=== PATIENT | female | born 1945 | race Caucasian/White ===

== ENCOUNTER → 2017-03-05 | Outpatient (CLI) | payer MEDICARE, BC ==
[~2017-03-05] MED LIST: ASPI-515 PO; CEFD300C37 PO; DEXL60CA PO; FEXO1TAB29 PO; FLUT1DIS3 INH; GUAI-110 PO; HYDR12.53 PO; LACT1CAP24 PO; LEVA15HF2 INH; LEVO150T5 PO; LEVO25TA2 PO; MOME13HF INH; MULT-82 PO; PANT20TA2 PO; PANT40TA5 PO; PARO10TA24 PO; PARO20TA4 PO; SOLI5TAB PO; SPIR1TAB3 PO; [UNRECOGNIZED DRUG - OTHER]; [UNRECOGNIZED DRUG - OTHER] PO
== END | disposition home or self-care (01) ==
LOC: CFH 07:24
PROVIDERS: ATTEND Internal Medicine Gastroenterology
DX: K76.0 Fatty (change of) liver, not elsewhere classified (principal)
CPT/HCPCS: 76700

== ENCOUNTER → 2017-03-09 | Outpatient (CLI) | payer MEDICARE, BC ==
[~2017-03-09] MED LIST changes: +APIX5TAB PO; +GADOBUTROL 10 MMOL/10 ML VIAL ONE; +METO-93 PO; +MIRA50TA PO; +TRAM50TA2 PO; +fish oil PO
== END | disposition home or self-care (01) ==
LOC: CFH 08:13
PROVIDERS: ATTEND Internal Medicine Gastroenterology
DX: K74.60 Unspecified cirrhosis of liver (principal); R16.0 Hepatomegaly, not elsewhere classified; Z90.49 Acquired absence of other specified parts of digestive tract
CPT/HCPCS: 74183; A9585

== ENCOUNTER 2017-03-10 08:19 | Day surgery (SDC) | payer MEDICARE, BC ==
[~2017-03-10] VITALS: Ht 154.9 cm; Wt 91.9 kg
[~2017-03-10 08:19] MED LIST changes: -APIX5TAB PO; -GADOBUTROL 10 MMOL/10 ML VIAL ONE; -METO-93 PO; -MIRA50TA PO; -TRAM50TA2 PO; -fish oil PO
[2017-03-10 08:58] VITALS: BP 147/87
[2017-03-10] MEDS ORDERED: LIDOCAINE 1%, 2ML ONE (09:09)
[2017-03-10] MEDS ORDERED: TRAM50TA2 PO (09:16)
[2017-03-10] MEDS ORDERED: FLUT1DIS3 INH (09:16)
[2017-03-10] MEDS ORDERED: MIRA50TA PO (09:16)
[2017-03-10] MEDS ORDERED: METO-93 PO (09:16)
[2017-03-10] MEDS ORDERED: APIX5TAB PO (09:16)
[2017-03-10] MEDS ORDERED: fish oil PO (09:16)
[2017-03-10] MEDS ORDERED: LACTATED RINGERS 1,000 ML IV SCH (09:17)
[2017-03-10] MEDS ORDERED: LIDOCAINE 1%, 2ML SQ PRN (09:30)
[2017-03-10] MEDS ORDERED: LIDOCAINE 2% 100MG/5ML SYRINGE ONE (10:16)
[2017-03-10] MEDS ORDERED: PROPOFOL 10 MG/ML, 50ML ONE (10:16)
== END 2017-03-10 12:15 | disposition home or self-care (01) ==
LOC: OUT 08:19
PROVIDERS: ATTEND Internal Medicine Gastroenterology
PROC: 0D748ZZ Dilation of Esophagogastric Junction, Via Natural or Artificial Opening Endoscopic (ICD-10-PCS; principal; 2017-03-10 10:00)
DX: K29.50 Unspecified chronic gastritis without bleeding (principal); K63.5 Polyp of colon; K63.89 Other specified diseases of intestine; K22.2 Esophageal obstruction; K44.9 Diaphragmatic hernia without obstruction or gangrene; K21.9 Gastro-esophageal reflux disease without esophagitis; J45.909 Unspecified asthma, uncomplicated; J44.9 Chronic obstructive pulmonary disease, unspecified; I10 Essential (primary) hypertension; E03.9 Hypothyroidism, unspecified; Z90.710 Acquired absence of both cervix and uterus; Z90.49 Acquired absence of other specified parts of digestive tract; Z98.890 Other specified postprocedural states; Z98.49 Cataract extraction status, unspecified eye
CPT/HCPCS: 43239; 43248; 45380; 88305; 93005; J2704; J3490; J7120; 88342; G0461

== ENCOUNTER → 2017-09-16 | Outpatient (CLI) | payer MEDICARE, BC ==
[~2017-09-16] MED LIST changes: +APIX5TAB PO; -DEXL60CA PO; +DEXL60CA2 PO; -LEVA15HF2 INH; +LEVA15HF4 INH; +METO-93 PO; +MIRA50TA PO; +MULT-224 PO; -MULT-82 PO; -PARO10TA24 PO; +PARO10TA56 PO; -SOLI5TAB PO; +SOLI5TAB2 PO; +TRAM50TA2 PO; +fish oil PO
== END | disposition home or self-care (01) ==
LOC: CFH 07:55
PROVIDERS: ATTEND Internal Medicine Gastroenterology
DX: K74.60 Unspecified cirrhosis of liver (principal)
CPT/HCPCS: 76700

== ENCOUNTER → 2017-10-14 | Outpatient (CLI) | payer MEDICARE, BC ==
[~2017-10-14] MED LIST changes: +CALC-126 PO; +LEVO137T3 PO; +MOME17SP9 NS; +OMEG1600 PO
[2017-10-14 10:55] LABS: BASOPHILS # (AUTO) 0.03 x10^3/uL (0-0.1); BASOPHILS % (AUTO) 1 % (0-1); EOSINOPHILS # (AUTO) 0.17 x10^3/uL (0-0.4); EOSINOPHILS % (AUTO) 3 % (1-7); LYMPHOCYTES # (AUTO) 1.24 x10^3/uL (1-3.4); LYMPHOCYTES % (AUTO) 22 % (22-44); MD NO; MEAN CORPUSCULAR HEMOGLOBIN 31.7 pg (27.0-34.8); MEAN CORPUSCULAR HGB CONC 34.6 g/dL (32.4-35.8); MEAN CORPUSCULAR VOLUME 91.6 fL (80-100); MEAN PLATELET VOLUME 9.4 fL (7.4-10.4); MONOCYTES # (AUTO) 0.57 x10^3/uL (0.2-0.8); MONOCYTES % (AUTO) 10 % (2-9); NEUTROPHILS # (AUTO) 3.72 x10^3/uL (1.8-6.8); NEUTROPHILS % (AUTO) 65 % (42-75); PLATELET COUNT 246 x10^3/uL (130-400); RED BLOOD COUNT 4.65 x10^6/uL (3.82-5.3); RED CELL DISTRIBUTION WIDTH 13.7 % (9.6-15.2)
[2017-10-14 11:06] LABS: ALANINE AMINOTRANSFERASE 51 U/L (12-78); ALBUMIN 3.8 g/dL (3.4-5.0); ANION GAP 7 mmol/L (5-15); CHLORIDE 98 mmol/L (98-107); CREATININE 0.86 mg/dL (0.55-1.02)
[2017-10-14 11:08] LABS: ALKALINE PHOSPHATASE 76 U/L (45-117); BILIRUBIN,TOTAL 0.7 mg/dL (0.2-1.0); TOTAL PROTEIN 7.5 g/dL (6.4-8.2)
[2017-10-14 11:13] LABS: CULTURE INDICATED? YES; MICROSCOPIC INDICATED
== END | disposition home or self-care (01) ==
LOC: STAR 09:28
PROVIDERS: ATTEND Orthopaedic Surgery
DX: Z01.818 Encounter for other preprocedural examination (principal); R94.31 Abnormal electrocardiogram [ECG] [EKG]; M17.11 Unilateral primary osteoarthritis, right knee
CPT/HCPCS: 36415; 80053; 81001; 85025; 87077; 87081; 87086; 87186; 93005

== ENCOUNTER 2017-10-28 05:40 | Inpatient (IN) | payer MEDICARE, BC ==
[~2017-10-28] VITALS: Ht 154.9 cm; Wt 95.2 kg
[2017-10-28] MEDS ORDERED: KETOROLAC 60 MG/2 ML ONE (06:20)
[2017-10-28] MEDS ORDERED: ROPIvacaine/PF 0.2%, 20 ML ONE (06:20)
[2017-10-28] MEDS ORDERED: TRANEXAMIC ACID 100 MG/ML, 10ML ONE (06:20)
[2017-10-28] MEDS ORDERED: EPINEPHRINE 1 MG/ML, 1ML ONE (06:21)
[2017-10-28] MEDS ORDERED: VANCOMYCIN 1,000 MG ONE (06:21)
[2017-10-28] MEDS ORDERED: SODIUM CHLORIDE 0.9% 100 ML ONE (06:21)
[2017-10-28] MEDS ORDERED: LACTATED RINGERS 1,000 ML IV SCH (06:25)
[2017-10-28] MEDS ORDERED: FENTANYL PF 100 MCG/2ML ONE ×2 (06:28→09:07)
[2017-10-28] MEDS ORDERED: MIDAZOLAM 1 MG/ML, 2ML ONE (06:28)
[2017-10-28] MEDS ORDERED: PROPOFOL 10 MG/ML, 20ML ONE (06:30)
[2017-10-28] MEDS ORDERED: PROPOFOL 150 ML ONE (06:31)
[2017-10-28] MEDS ORDERED: morphine SULFATE 10 MG/ML, 1ML IV PRN (08:00)
[2017-10-28] MEDS ORDERED: HYDROcodone/APAP 7.5-325MG/15ML UDC PO PRN (08:00)
[2017-10-28] MEDS ORDERED: OXYcodone 5 MG/5 ML ORAL.SOL UDC PO PRN (08:00)
[2017-10-28] MEDS ORDERED: ONDANSETRON 2MG/ML, 2ML IVPush PRN (08:00)
[2017-10-28] MEDS ORDERED: PROMETHAZINE 25 MG/ML, 1ML IV PRN (08:00)
[2017-10-28] MEDS ORDERED: ACETAMINOPHEN 325 MG TABLET PO PRN (08:00)
[2017-10-28] MEDS ORDERED: DIPHENHYDRAMINE 25 MG CAPSULE PO PRN (09:00)
[2017-10-28] MEDS ORDERED: LORazepam 1MG TABLET PO PRN (09:00)
[2017-10-28] MEDS ORDERED: ACETAMINOPHEN 650 MG/20.3 ML UDC PO PRN (09:00)
[2017-10-28] MEDS ORDERED: MAGNESIUM HYDROXIDE 8%, 30ML UDC PO PRN (09:00)
[2017-10-28] MEDS ORDERED: ONDANSETRON 4 MG TABLET PO PRN (09:00)
[2017-10-28] MEDS ORDERED: ZOLPIDEM 5MG TABLET PO PRN (09:00)
[2017-10-28] MEDS ORDERED: HYDROcodone/APAP 5/325 TABLET PO PRN (09:00)
[2017-10-28] MEDS ORDERED: PROMETHAZINE 25 MG/ML, 1ML IM PRN (09:00)
[2017-10-28] MEDS ORDERED: SENNA/DOCUSATE TABLET PO PRN (09:00)
[2017-10-28] MEDS ORDERED: PROMETHAZINE 12.5 MG SUPP PR PRN (09:00)
[2017-10-28] MEDS ORDERED: ONDANSETRON 2MG/ML, 2ML IV PRN (09:00)
[2017-10-28] MEDS ORDERED: ALUMINUM/MAG/SIMETHICONE 30 ML UDC PO PRN (09:00)
[2017-10-28] MEDS ORDERED: HYDROmorphone 1 MG/ML, 1ML IV PRN (09:00)
[2017-10-28] MEDS ORDERED: BISACODYL 10 MG SUPP PR PRN (09:00)
[2017-10-28] MEDS ORDERED: ACETAMINOPHEN 650 MG/20.3 ML UDC ONE (09:06)
[2017-10-28] MEDS ORDERED: OXYcodone 5 MG/5 ML ORAL.SOL UDC ONE (09:07)
[2017-10-28] MEDS: FENTANYL PF 100 MCG/2ML IV PRN ×2 (09:15→09:22)
[2017-10-28] MEDS ORDERED: TRANEXAMIC ACID 1,000 MG in SODIUM CHLORIDE 0.9% 100 ML IVPB ONE (10:00)
[2017-10-28] MEDS ORDERED: CEFAZOLIN 2,000 MG in DEXTROSE 5% 50 ML IV SCH ×2 (10:30→12:00)
[2017-10-28] MEDS ORDERED: XOPENEX HFA INHALER INH PRN (11:00)
[2017-10-28] MEDS: MORPHINE SULFATE 4 MG/ML, 1ML IVPush PRN ×5 (11:09→20:01)
[2017-10-28 11:15] VITALS: BP 131/73
[2017-10-28] MEDS: OXYcodone IR 5MG TABLET PO PRN ×3 (13:11→21:34)
[2017-10-28 14:22] VITALS: BP 125/75
[2017-10-28] MEDS: DIAZEPAM 5 MG TABLET PO PRN ×2 (14:32→20:02)
[2017-10-28] MEDS ORDERED: PROPOFOL 10 MG/ML, 50ML ONE (15:21)
[2017-10-28] MEDS ORDERED: ONDANSETRON 2MG/ML, 2ML ONE (15:21)
[2017-10-28] MEDS ORDERED: DEXAMETHASONE 4 MG/ML, 1ML ONE (15:21)
[2017-10-28] MEDS ORDERED: CEFAZOLIN 1,000 MG ONE (15:21)
[2017-10-28] MEDS: CEFAZOLIN 2,000 MG in DEXTROSE 5% 50 ML IV SCH ×2 (15:28→23:57)
[2017-10-28] MEDS: DOCUSATE 100 MG CAPSULE PO SCH ×2 (15:29→21:35)
[2017-10-28] MEDS: TAMSULOSIN 0.4 MG CAP.ER.24H PO SCH (15:29)
[2017-10-28] MEDS: D5%-0.45% NACL 1,000 ML IV SCH ×2 (17:24→18:02)
[2017-10-28 19:54] VITALS: BP 114/55
[2017-10-28] MEDS: ADVAIR 250-50 DISKUS INH SCH (21:00)
[2017-10-29 00:18] VITALS: BP 125/57
[2017-10-29 00:31] VITALS: BP 106/61
[2017-10-29] MEDS: DIAZEPAM 5 MG TABLET PO PRN ×2 (00:52→13:05)
[2017-10-29] MEDS: OXYcodone IR 5MG TABLET PO PRN ×4 (01:35→16:10)
[2017-10-29] MEDS: D5%-0.45% NACL 1,000 ML IV SCH ×2 (03:11→12:14)
[2017-10-29 04:19] VITALS: BP 118/61
[2017-10-29] MEDS ORDERED: DEXAMETHASONE 4 MG/ML, 1ML IVPush SCH (06:00)
[2017-10-29] MEDS ORDERED: LEVOTHYROXINE 137 MCG TABLET PO SCH (06:00)
[2017-10-29] MEDS ORDERED: METOPROLOL SUCCINATE 50 MG TAB.ER.24H PO SCH (06:00)
[2017-10-29] MEDS ORDERED: APIXABAN 5 MG TABLET PO SCH (06:00)
[2017-10-29] MEDS ORDERED: METOPROLOL SUCCINATE 25 MG TAB.ER.24H ONE (06:09)
[2017-10-29 07:49] VITALS: BP 142/42
[2017-10-29] MEDS: CEFAZOLIN 2,000 MG in DEXTROSE 5% 50 ML IV SCH ×2 (08:37→15:30)
[2017-10-29] MEDS ORDERED: OMEGA-3/FISH OIL CAPSULE PO SCH (09:00)
[2017-10-29] MEDS ORDERED: MULTIVITAMINS/MINERALS TABLET PO SCH (09:00)
[2017-10-29] MEDS ORDERED: PAROXETINE 20 MG TABLET PO SCH (09:00)
[2017-10-29] MEDS ORDERED: KETOROLAC 30 MG/1 ML IV SCH (09:00)
[2017-10-29] MEDS ORDERED: SPIRONOLACT/HCTZ 25/25MG TABLET PO SCH (09:00)
[2017-10-29] MEDS: ADVAIR 250-50 DISKUS INH SCH (09:00)
[2017-10-29] MEDS ORDERED: DEXILANT 60MG HOMEMEDPO SCH (09:00)
[2017-10-29] MEDS ORDERED: MYRBETRIQ 50 MG HOMEMEDPO SCH (09:00)
[2017-10-29] MEDS ORDERED: MOMETASONE FUROATE HOMEINH SCH (09:00)
[2017-10-29] MEDS ORDERED: ALLEGRA D HOMEMEDPO SCH (09:00)
[2017-10-29] MEDS: TAMSULOSIN 0.4 MG CAP.ER.24H PO SCH (09:07)
[2017-10-29] MEDS: DOCUSATE 100 MG CAPSULE PO SCH (09:09)
[2017-10-29 12:34] VITALS: BP 108/73
[2017-10-29] MEDS ORDERED: DIAZ5TAB PO (16:43)
[2017-10-29] MEDS ORDERED: OXYC5CAP2 PO (16:43)
== END 2017-10-29 17:00 | disposition home or self-care (01) | DRG 469 ==
LOC: ORIP 05:40 → 4NOR 10:04 → DCLOUNGE 10-29 16:41
PROVIDERS: ADMIT Orthopaedic Surgery; ATTEND Orthopaedic Surgery
PROC: 0SRC0J9 Replacement of Right Knee Joint with Synthetic Substitute, Cemented, Open Approach (ICD-10-PCS; principal; 2017-10-28 07:30)
PROC: 5A09357 Assistance with Respiratory Ventilation, Less than 24 Consecutive Hours, Continuous Positive Airway Pressure (ICD-10-PCS; 2017-10-29)
DX: M17.11 Unilateral primary osteoarthritis, right knee (principal); J96.21 Acute and chronic respiratory failure with hypoxia; I48.91 Unspecified atrial fibrillation; G47.33 Obstructive sleep apnea (adult) (pediatric); I10 Essential (primary) hypertension; E03.9 Hypothyroidism, unspecified; K21.9 Gastro-esophageal reflux disease without esophagitis; J45.909 Unspecified asthma, uncomplicated
CPT/HCPCS: 36415; 85018; C1713; J0171; J0690; J1100; J1885; J2250; J2405; J2704; J2795; J3010; J3370; C1776; J7120

== ENCOUNTER 2017-11-02 00:15 | Inpatient (IN) | payer MEDICARE, BC ==
[~2017-11-02] VITALS: Ht 154.9 cm; Wt 96.2 kg
[~2017-11-02 00:15] MED LIST changes: +DIAZ5TAB PO; +OXYC5CAP2 PO
[2017-11-02] MEDS ORDERED: SODIUM CHLORIDE FLUSH 10ML SYR IVF ONE (01:00)
[2017-11-02] MEDS ORDERED: SODIUM CHLORIDE 0.9% 1,000ML IVBOLUS ONE (01:00)
[2017-11-02 01:18] LABS: BASOPHILS # (AUTO) 0.03 x10^3/uL (0-0.1); BASOPHILS % (AUTO) 0 % (0-1); EOSINOPHILS # (AUTO) 0.26 x10^3/uL (0-0.4); EOSINOPHILS % (AUTO) 3 % (1-7); LYMPHOCYTES # (AUTO) 1.07 x10^3/uL (1-3.4); LYMPHOCYTES % (AUTO) 14 % (22-44); MD NO; MEAN CORPUSCULAR HEMOGLOBIN 30.9 pg (27.0-34.8); MEAN CORPUSCULAR HGB CONC 34.1 g/dL (32.4-35.8); MEAN CORPUSCULAR VOLUME 90.6 fL (80-100); MONOCYTES # (AUTO) 0.77 x10^3/uL (0.2-0.8); MONOCYTES % (AUTO) 10 % (2-9); NEUTROPHILS # (AUTO) 5.62 x10^3/uL (1.8-6.8); NEUTROPHILS % (AUTO) 73 % (42-75); PLATELET COUNT 222 x10^3/uL (130-400); RED BLOOD COUNT 3.44 x10^6/uL (3.82-5.3); RED CELL DISTRIBUTION WIDTH 13.2 % (9.6-15.2)
[2017-11-02 01:31] LABS: ALANINE AMINOTRANSFERASE 31 U/L (12-78); ALBUMIN 2.5 g/dL (3.4-5.0); ANION GAP 8 mmol/L (5-15); CALCIUM 7.9 mg/dL (8.5-10.1); CHLORIDE 95 mmol/L (98-107); CREATININE 0.72 mg/dL (0.55-1.02)
[2017-11-02 01:35] LABS: ALKALINE PHOSPHATASE 69 U/L (45-117); BILIRUBIN,TOTAL 1.2 mg/dL (0.2-1.0); TROPONIN I 0.021 ng/mL (0.000-0.045)
[2017-11-02] MEDS ORDERED: POTASSIUM CHLORIDE 20 MEQ TAB.ER.PRT PO ONE ×2 (02:00→12:00)
[2017-11-02] MEDS ORDERED: MORPHINE SULFATE 4 MG/ML, 1ML ONE (02:18)
[2017-11-02] MEDS ORDERED: MORPHINE SULFATE 4 MG/ML, 1ML IVPush PRN (02:30)
[2017-11-02] MEDS ORDERED: POTASSIUM CHLORIDE 20 MEQ TAB.ER.PRT ONE (02:38)
[2017-11-02] MEDS ORDERED: OMNIPAQUE 350 MG/ML, 100ML BOTTLE ONE (02:48)
[2017-11-02] MEDS ORDERED: POTASSIUM CHLORIDE 20 MEQ in SODIUM CHLORIDE 0.9% 1,000 ML IV ONE (03:26)
[2017-11-02] MEDS ORDERED: VANCOMYCIN PER PHARMACY IV ONE (03:30)
[2017-11-02] MEDS ORDERED: VANCOMYCIN 1,800 MG in SODIUM CHLORIDE 0.9% 250 ML IV ONE (03:30)
[2017-11-02 04:15] VITALS: BP 132/71
[2017-11-02] MEDS ORDERED: ONDANSETRON 2MG/ML, 2ML IVPush PRN (04:30)
[2017-11-02] MEDS ORDERED: FUROSEMIDE 40 MG/4 ML IV ONE (04:30)
[2017-11-02] MEDS ORDERED: LEVALBUTEROL TARTRATE INH PRN (04:30)
[2017-11-02] MEDS: OXYcodone IR 5MG TABLET PO PRN ×5 (04:52→19:41)
[2017-11-02 05:52] LABS: TROPONIN I < 0.015 ng/mL (0.000-0.045)
[2017-11-02] MEDS: SODIUM CHLORIDE 0.9% 1,000 ML IV SCH ×2 (06:14→23:26)
[2017-11-02 06:20] LABS: MICROSCOPIC NOT IND
[2017-11-02 06:23] LABS: CULTURE INDICATED? NO
[2017-11-02 07:06] VITALS: BP 120/72
[2017-11-02] MEDS: CALCIUM/VITAMIN D3 250-125 TABLET PO SCH (08:15)
[2017-11-02] MEDS: SPIRONOLACT/HCTZ 25/25MG TABLET PO SCH (08:15)
[2017-11-02] MEDS: PANTOPROZOLE 40MG TABLET PO SCH (08:15)
[2017-11-02] MEDS: LEVOTHYROXINE 137 MCG TABLET PO SCH (08:15)
[2017-11-02] MEDS: PAROXETINE 20 MG TABLET PO SCH (08:15)
[2017-11-02] MEDS: METOPROLOL SUCCINATE 50 MG TAB.ER.24H PO SCH (08:16)
[2017-11-02] MEDS: OMEGA-3/FISH OIL CAPSULE PO SCH (08:16)
[2017-11-02] MEDS: APIXABAN 5 MG TABLET PO SCH ×2 (08:16→20:00)
[2017-11-02] MEDS: MULTIVITAMIN 1 TABLET PO SCH (08:16)
[2017-11-02] MEDS: POLYETHYLENE GLYCOL 17 GM PACKET PO SCH (08:17)
[2017-11-02] MEDS: TEMPLATE NON-FORMULARY MED. (Mirabegron** (Myrbetriq**) 50 MG) HOMEMEDPO SCH (08:23)
[2017-11-02] MEDS: FLUTICASONE NASAL SPRAY 16GM NAS SCH (09:00)
[2017-11-02] MEDS: FLUTICASONE/VILANTEROL 100-25MCG/INH INH SCH (09:14)
[2017-11-02 10:27] LABS: TROPONIN I < 0.015 ng/mL (0.000-0.045)
[2017-11-02 11:07] LABS: ANION GAP 9 mmol/L (5-15); CALCIUM 7.7 mg/dL (8.5-10.1); CHLORIDE 96 mmol/L (98-107); CREATININE 0.71 mg/dL (0.55-1.02)
[2017-11-02 14:45] VITALS: BP 131/83
[2017-11-02 20:07] VITALS: BP 125/79
[2017-11-03 02:53] VITALS: BP 113/70
[2017-11-03 05:24] LABS: BASOPHILS % (AUTO) 0 % (0-1); EOSINOPHILS # (AUTO) 0.31 x10^3/uL (0-0.4); EOSINOPHILS % (AUTO) 4 % (1-7); LYMPHOCYTES # (AUTO) 1.01 x10^3/uL (1-3.4); LYMPHOCYTES % (AUTO) 14 % (22-44); MD NO; MEAN CORPUSCULAR HEMOGLOBIN 32.1 pg (27.0-34.8); MEAN CORPUSCULAR HGB CONC 34.7 g/dL (32.4-35.8); MEAN CORPUSCULAR VOLUME 92.5 fL (80-100); MEAN PLATELET VOLUME 8.8 fL (7.4-10.4); MONOCYTES # (AUTO) 0.77 x10^3/uL (0.2-0.8); MONOCYTES % (AUTO) 10 % (2-9); NEUTROPHILS # (AUTO) 5.29 x10^3/uL (1.8-6.8); NEUTROPHILS % (AUTO) 72 % (42-75); PLATELET COUNT 224 x10^3/uL (130-400); RED BLOOD COUNT 3.34 x10^6/uL (3.82-5.3)
[2017-11-03 05:31] LABS: CHLORIDE 100 mmol/L (98-107)
[2017-11-03 05:40] LABS: ALANINE AMINOTRANSFERASE 30 U/L (12-78); ALBUMIN 2.5 g/dL (3.4-5.0); ALKALINE PHOSPHATASE 66 U/L (45-117); ANION GAP 6 mmol/L (5-15); BILIRUBIN,TOTAL 1.3 mg/dL (0.2-1.0); CALCIUM 8.1 mg/dL (8.5-10.1); CREATININE 0.63 mg/dL (0.55-1.02)
[2017-11-03 07:27] VITALS: BP 137/80
[2017-11-03] MEDS: OXYcodone IR 5MG TABLET PO PRN ×4 (08:06→21:21)
[2017-11-03] MEDS: CALCIUM/VITAMIN D3 250-125 TABLET PO SCH (08:07)
[2017-11-03] MEDS: MULTIVITAMIN 1 TABLET PO SCH (08:08)
[2017-11-03] MEDS: OMEGA-3/FISH OIL CAPSULE PO SCH (08:08)
[2017-11-03] MEDS: METOPROLOL SUCCINATE 50 MG TAB.ER.24H PO SCH (08:08)
[2017-11-03] MEDS: APIXABAN 5 MG TABLET PO SCH ×2 (08:08→20:11)
[2017-11-03] MEDS: LEVOTHYROXINE 137 MCG TABLET PO SCH (08:08)
[2017-11-03] MEDS: PANTOPROZOLE 40MG TABLET PO SCH (08:08)
[2017-11-03] MEDS: PAROXETINE 20 MG TABLET PO SCH (08:08)
[2017-11-03] MEDS: POLYETHYLENE GLYCOL 17 GM PACKET PO SCH (08:09)
[2017-11-03] MEDS: TEMPLATE NON-FORMULARY MED. (Mirabegron** (Myrbetriq**) 50 MG) HOMEMEDPO SCH (08:09)
[2017-11-03] MEDS: FLUTICASONE/VILANTEROL 100-25MCG/INH INH SCH (10:11)
[2017-11-03] MEDS: SPIRONOLACT/HCTZ 25/25MG TABLET PO SCH (10:11)
[2017-11-03] MEDS: FLUTICASONE NASAL SPRAY 16GM NAS SCH (10:11)
[2017-11-03] MEDS ORDERED: POTASSIUM CHLORIDE 20 MEQ TAB.ER.PRT PO ONE (12:00)
[2017-11-03 13:02] VITALS: BP 158/76
[2017-11-03 19:20] VITALS: BP 156/80
[2017-11-04] MEDS: ACETAMINOPHEN 325 MG TABLET PO PRN ×3 (00:25→20:28)
[2017-11-04 02:43] VITALS: BP 134/65
[2017-11-04] MEDS: OXYcodone IR 5MG TABLET PO PRN ×2 (04:15→08:42)
[2017-11-04 05:22] LABS: BASOPHILS # (AUTO) 0.04 x10^3/uL (0-0.1); BASOPHILS % (AUTO) 1 % (0-1); EOSINOPHILS % (AUTO) 5 % (1-7); LYMPHOCYTES # (AUTO) 1.43 x10^3/uL (1-3.4); LYMPHOCYTES % (AUTO) 18 % (22-44); MD NO; MEAN CORPUSCULAR HGB CONC 33.4 g/dL (32.4-35.8); MEAN CORPUSCULAR VOLUME 92.7 fL (80-100); MEAN PLATELET VOLUME 8.6 fL (7.4-10.4); MONOCYTES # (AUTO) 0.85 x10^3/uL (0.2-0.8); MONOCYTES % (AUTO) 10 % (2-9); NEUTROPHILS # (AUTO) 5.47 x10^3/uL (1.8-6.8); NEUTROPHILS % (AUTO) 67 % (42-75); PLATELET COUNT 269 x10^3/uL (130-400); RED BLOOD COUNT 3.58 x10^6/uL (3.82-5.3); RED CELL DISTRIBUTION WIDTH 13.6 % (9.6-15.2)
[2017-11-04 05:29] LABS: ANION GAP 9 mmol/L (5-15); CALCIUM 8.4 mg/dL (8.5-10.1); CHLORIDE 100 mmol/L (98-107)
[2017-11-04 05:30] LABS: CREATININE 0.66 mg/dL (0.55-1.02)
[2017-11-04 07:30] VITALS: BP 134/79
[2017-11-04] MEDS: MULTIVITAMIN 1 TABLET PO SCH (08:32)
[2017-11-04] MEDS: CALCIUM/VITAMIN D3 250-125 TABLET PO SCH (08:32)
[2017-11-04] MEDS: SPIRONOLACT/HCTZ 25/25MG TABLET PO SCH (08:33)
[2017-11-04] MEDS: OMEGA-3/FISH OIL CAPSULE PO SCH (08:33)
[2017-11-04] MEDS: PAROXETINE 20 MG TABLET PO SCH (08:33)
[2017-11-04] MEDS: APIXABAN 5 MG TABLET PO SCH ×2 (08:33→20:28)
[2017-11-04] MEDS: PANTOPROZOLE 40MG TABLET PO SCH (08:33)
[2017-11-04] MEDS: METOPROLOL SUCCINATE 50 MG TAB.ER.24H PO SCH (08:34)
[2017-11-04] MEDS: LEVOTHYROXINE 137 MCG TABLET PO SCH (08:34)
[2017-11-04] MEDS: POLYETHYLENE GLYCOL 17 GM PACKET PO SCH (08:35)
[2017-11-04] MEDS: FLUTICASONE/VILANTEROL 100-25MCG/INH INH SCH (08:42)
[2017-11-04] MEDS: FLUTICASONE NASAL SPRAY 16GM NAS SCH (08:42)
[2017-11-04] MEDS: TEMPLATE NON-FORMULARY MED. (Mirabegron** (Myrbetriq**) 50 MG) HOMEMEDPO SCH (09:00)
[2017-11-04] MEDS: GABAPENTIN 100 MG CAPSULE PO SCH ×3 (11:28→20:28)
[2017-11-04 13:52] VITALS: BP 139/84
[2017-11-04 19:39] VITALS: BP 122/80
[2017-11-05 01:52] VITALS: BP 151/75
[2017-11-05] MEDS: ACETAMINOPHEN 325 MG TABLET PO PRN ×2 (02:43→11:11)
[2017-11-05] MEDS: GABAPENTIN 100 MG CAPSULE PO SCH ×2 (05:29→11:10)
[2017-11-05 05:51] LABS: BASOPHILS # (AUTO) 0.04 x10^3/uL (0-0.1); BASOPHILS % (AUTO) 0 % (0-1); EOSINOPHILS # (AUTO) 0.39 x10^3/uL (0-0.4); EOSINOPHILS % (AUTO) 4 % (1-7); LYMPHOCYTES # (AUTO) 1.33 x10^3/uL (1-3.4); LYMPHOCYTES % (AUTO) 15 % (22-44); MD NO; MEAN CORPUSCULAR HEMOGLOBIN 30.8 pg (27.0-34.8); MEAN CORPUSCULAR HGB CONC 33.4 g/dL (32.4-35.8); MEAN CORPUSCULAR VOLUME 92.2 fL (80-100); MEAN PLATELET VOLUME 8.5 fL (7.4-10.4); MONOCYTES # (AUTO) 0.92 x10^3/uL (0.2-0.8); MONOCYTES % (AUTO) 10 % (2-9); NEUTROPHILS # (AUTO) 6.39 x10^3/uL (1.8-6.8); NEUTROPHILS % (AUTO) 71 % (42-75); PLATELET COUNT 301 x10^3/uL (130-400); RED BLOOD COUNT 3.71 x10^6/uL (3.82-5.3); RED CELL DISTRIBUTION WIDTH 13.8 % (9.6-15.2)
[2017-11-05 05:57] LABS: CHLORIDE 101 mmol/L (98-107)
[2017-11-05 06:37] LABS: % IRON SATURATION 15 % (20-55); ANION GAP 9 mmol/L (5-15); CALCIUM 8.6 mg/dL (8.5-10.1); CREATININE 0.83 mg/dL (0.55-1.02); FOLATE LEVEL 14.7 ng/mL (3.1-17.5); IRON LEVEL 42 mcg/dL (50-170); TOTAL IRON BINDING CAPACITY 285 mcg/dL (250-450)
[2017-11-05 07:48] VITALS: BP 130/84
[2017-11-05] MEDS ORDERED: FERROUS SULFATE 325 MG TABLET PO SCH (08:00)
[2017-11-05] MEDS: PANTOPROZOLE 40MG TABLET PO SCH (08:44)
[2017-11-05] MEDS: SPIRONOLACT/HCTZ 25/25MG TABLET PO SCH (08:44)
[2017-11-05] MEDS: APIXABAN 5 MG TABLET PO SCH (08:44)
[2017-11-05] MEDS: LEVOTHYROXINE 137 MCG TABLET PO SCH (08:44)
[2017-11-05] MEDS: OMEGA-3/FISH OIL CAPSULE PO SCH (08:44)
[2017-11-05] MEDS: CALCIUM/VITAMIN D3 250-125 TABLET PO SCH (08:44)
[2017-11-05] MEDS: MULTIVITAMIN 1 TABLET PO SCH (08:44)
[2017-11-05] MEDS: PAROXETINE 20 MG TABLET PO SCH (08:44)
[2017-11-05] MEDS: FLUTICASONE/VILANTEROL 100-25MCG/INH INH SCH (08:45)
[2017-11-05] MEDS: FLUTICASONE NASAL SPRAY 16GM NAS SCH (08:45)
[2017-11-05] MEDS: METOPROLOL SUCCINATE 50 MG TAB.ER.24H PO SCH (08:45)
[2017-11-05] MEDS: TEMPLATE NON-FORMULARY MED. (Mirabegron** (Myrbetriq**) 50 MG) HOMEMEDPO SCH (08:46)
[2017-11-05] MEDS: POLYETHYLENE GLYCOL 17 GM PACKET PO SCH (08:46)
[2017-11-05] MEDS ORDERED: GABA-826 PO (11:20)
[2017-11-05] MEDS ORDERED: TRAM50TA2 PO (11:20)
[2017-11-05 12:40] VITALS: BP 122/70
== END 2017-11-05 16:54 | DRG 917 ==
LOC: ED 00:49 → EDIP 03:26 → 4NOR 04:29 → 4EST 05:29
PROVIDERS: ADMIT Hospitalist; ATTEND Hospitalist
DX: T42.4X1A Poisoning by benzodiazepines, accidental (unintentional), initial encounter (principal); J96.01 Acute respiratory failure with hypoxia; E43 Unspecified severe protein-calorie malnutrition; I50.31 Acute diastolic (congestive) heart failure; I48.91 Unspecified atrial fibrillation; L03.115 Cellulitis of right lower limb; D64.9 Anemia, unspecified; J44.9 Chronic obstructive pulmonary disease, unspecified; E87.1 Hypo-osmolality and hyponatremia; Z68.41 Body mass index [BMI] 40.0-44.9, adult; K74.60 Unspecified cirrhosis of liver; T40.601A Poisoning by unspecified narcotics, accidental (unintentional), initial encounter; I11.0 Hypertensive heart disease with heart failure; E03.9 Hypothyroidism, unspecified; E87.6 Hypokalemia; G47.33 Obstructive sleep apnea (adult) (pediatric); K21.9 Gastro-esophageal reflux disease without esophagitis; M17.11 Unilateral primary osteoarthritis, right knee; Z90.710 Acquired absence of both cervix and uterus; Z96.651 Presence of right artificial knee joint; Z88.6 Allergy status to analgesic agent; Z91.040 Latex allergy status; Y92.89 Other specified places as the place of occurrence of the external cause
CPT/HCPCS: 36415; 71045; 71275; 80048; 80053; 81003; 82607; 82728; 82746; 83540; 83550; 83605; 83735; 83880; 84100; 84145; 84484; 85025; 87040; 93005; 93306; 96365; 96375; J1940; J3370; Q9967; J7030; J7050

== ENCOUNTER → 2018-02-02 | Outpatient (CLI) | payer MEDICARE, BC ==
[~2018-02-02] MED LIST changes: +GABA-826 PO
== END | disposition home or self-care (01) ==
LOC: CFH 13:55
PROVIDERS: ATTEND Registered Nurse General Practice
DX: Z12.31 Encounter for screening mammogram for malignant neoplasm of breast (principal); Z13.820 Encounter for screening for osteoporosis; Z12.2 Encounter for screening for malignant neoplasm of respiratory organs; I25.10 Atherosclerotic heart disease of native coronary artery without angina pectoris; M85.88 Other specified disorders of bone density and structure, other site; R92.1 Mammographic calcification found on diagnostic imaging of breast; N95.9 Unspecified menopausal and perimenopausal disorder; Z87.891 Personal history of nicotine dependence
CPT/HCPCS: 77067; 77080; G0297

== ENCOUNTER → 2018-10-28 | Outpatient (CLI) | payer MEDICARE, BC ==
[~2018-10-28] MED LIST changes: +HYDR12.517 PO; -HYDR12.53 PO; -MULT-224 PO; +MULT-642 PO; +REGADENOSON 0.4 MG/5 ML SYRINGE ONE
== END | disposition home or self-care (01) ==
LOC: CVU 09:26
PROVIDERS: ATTEND Internal Medicine Cardiovascular Disease
DX: I65.23 Occlusion and stenosis of bilateral carotid arteries (principal); I48.0 Paroxysmal atrial fibrillation; E11.9 Type 2 diabetes mellitus without complications; I10 Essential (primary) hypertension; J44.9 Chronic obstructive pulmonary disease, unspecified; Z87.891 Personal history of nicotine dependence; Z72.89 Other problems related to lifestyle; Z88.5 Allergy status to narcotic agent; Z91.040 Latex allergy status
CPT/HCPCS: 93306; 93880; J2785

== ENCOUNTER → 2018-11-04 | Outpatient (CLI) | payer MEDICARE, BC ==
[~2018-11-04] MED LIST changes: -REGADENOSON 0.4 MG/5 ML SYRINGE ONE
== END | disposition home or self-care (01) ==
LOC: CFH 07:09
PROVIDERS: ATTEND Internal Medicine Gastroenterology
DX: K74.60 Unspecified cirrhosis of liver (principal); K20.0 Eosinophilic esophagitis; K21.9 Gastro-esophageal reflux disease without esophagitis; K75.81 Nonalcoholic steatohepatitis (NASH); K90.89 Other intestinal malabsorption; B96.81 Helicobacter pylori [H. pylori] as the cause of diseases classified elsewhere; I48.0 Paroxysmal atrial fibrillation; E89.41 Symptomatic postprocedural ovarian failure; G47.30 Sleep apnea, unspecified; E11.9 Type 2 diabetes mellitus without complications; E03.9 Hypothyroidism, unspecified; I10 Essential (primary) hypertension; Z86.010 Personal history of colon polyps; Z68.38 Body mass index [BMI] 38.0-38.9, adult; Z79.01 Long term (current) use of anticoagulants; Z87.11 Personal history of peptic ulcer disease; Z90.49 Acquired absence of other specified parts of digestive tract; Z87.891 Personal history of nicotine dependence; Z88.6 Allergy status to analgesic agent; Z88.8 Allergy status to other drugs, medicaments and biological substances
CPT/HCPCS: 76705

== ENCOUNTER 2018-11-25 11:44 | Day surgery (SDC) | payer MEDICARE, BC ==
[2018-11-24 11:36] VITALS: BP 142/86
[2018-11-24 12:07] LABS: BASOPHILS # (AUTO) 0.04 x10^3/uL (0-0.1); BASOPHILS % (AUTO) 1 % (0-1); EOSINOPHILS # (AUTO) 0.23 x10^3/uL (0-0.4); EOSINOPHILS % (AUTO) 5 % (1-7); LYMPHOCYTES # (AUTO) 1.09 x10^3/uL (1-3.4); LYMPHOCYTES % (AUTO) 22 % (22-44); MD NO; MEAN CORPUSCULAR HEMOGLOBIN 27.2 pg (27.0-34.8); MEAN CORPUSCULAR HGB CONC 32.8 g/dL (32.4-35.8); MEAN PLATELET VOLUME 10.4 fL (7.4-10.4); MONOCYTES # (AUTO) 0.43 x10^3/uL (0.2-0.8); MONOCYTES % (AUTO) 9 % (2-9); NEUTROPHILS # (AUTO) 3.24 x10^3/uL (1.8-6.8); NEUTROPHILS % (AUTO) 65 % (42-75); PLATELET COUNT 222 x10^3/uL (130-400); RED BLOOD COUNT 4.89 x10^6/uL (3.82-5.3); RED CELL DISTRIBUTION WIDTH 15.9 % (9.6-15.2)
[2018-11-24 12:09] LABS: ANION GAP 5 mmol/L (5-15); CALCIUM 9.5 mg/dL (8.5-10.1); CHLORIDE 105 mmol/L (98-107)
[2018-11-24 12:10] LABS: CREATININE 0.77 mg/dL (0.55-1.02)
[~2018-11-25] VITALS: Ht 154.9 cm; Wt 87.3 kg
[~2018-11-25 11:44] MED LIST changes: +FEXO180T72 PO; +GUAI600T31 PO; +MEGA RED JOINT CARE PO; +METH500T5 PO; +MOME13HF2 INH; +[UNRECOGNIZED DRUG - CODE] PO; +[UNRECOGNIZED DRUG - OTHER] PO; +[UNRECOGNIZED DRUG - OTHER] PO; +[UNRECOGNIZED DRUG - OTHER] PO
[2018-11-25] MEDS ORDERED: SODIUM CHLORIDE 0.9% 1,000 ML IV SCH ×2 (13:13→14:36)
[2018-11-25] MEDS ORDERED: DIPHENHYDRAMINE 50 MG/ML, 1ML ONE (13:26)
[2018-11-25] MEDS ORDERED: DIPHENHYDRAMINE 50 MG/ML, 1ML IVPush ONE (13:30)
[2018-11-25] MEDS ORDERED: MIDAZOLAM 1 MG/ML, 5ML ONE (13:37)
[2018-11-25] MEDS ORDERED: FENTANYL PF 100 MCG/2ML ONE (13:37)
[2018-11-25] MEDS ORDERED: LIDOCAINE 1%, 20ML ONE (13:38)
[2018-11-25 16:39] VITALS: BP 135/67
== END 2018-11-25 18:45 | disposition home or self-care (01) ==
LOC: CACL 11:44 → 5SO 14:52 → CACL 18:45
PROVIDERS: ATTEND Internal Medicine Cardiovascular Disease
DX: I77.1 Stricture of artery (principal); I10 Essential (primary) hypertension; E11.9 Type 2 diabetes mellitus without complications; E78.2 Mixed hyperlipidemia; I48.0 Paroxysmal atrial fibrillation; J44.9 Chronic obstructive pulmonary disease, unspecified; G47.30 Sleep apnea, unspecified; Z79.01 Long term (current) use of anticoagulants; Z87.891 Personal history of nicotine dependence; Z88.5 Allergy status to narcotic agent; Z88.8 Allergy status to other drugs, medicaments and biological substances; Z91.040 Latex allergy status; Z79.84 Long term (current) use of oral hypoglycemic drugs
CPT/HCPCS: 36415; 80048; 85025; 93458; 99156; C1769; C1894; J1200; J2250; J3010; Q9967; G0378

== ENCOUNTER 2018-11-29 11:07 | Outpatient (CLI) | payer MEDICARE, BC ==
[2018-11-29] MEDS ORDERED: OMNIPAQUE 350 MG/ML, 100ML BOTTLE ONE (13:00)
== END 2018-11-29 23:59 | disposition home or self-care (01) ==
LOC: CFH 11:07
PROVIDERS: ATTEND Internal Medicine
DX: I70.0 Atherosclerosis of aorta (principal); K76.0 Fatty (change of) liver, not elsewhere classified
CPT/HCPCS: 71275; Q9967

== ENCOUNTER 2019-08-17 09:07 | Outpatient (CLI) | payer MEDICARE, BC | END 2019-08-17 23:59 | disposition home or self-care (01) | LOC: CFH 09:07 | PROVIDERS: ATTEND Physician Assistant | DX: K74.60 Unspecified cirrhosis of liver (principal); K75.81 Nonalcoholic steatohepatitis (NASH); Z90.49 Acquired absence of other specified parts of digestive tract | CPT/HCPCS: 76705 ==

== ENCOUNTER 2020-02-21 07:38 | Outpatient (CLI) | payer MEDICARE, BC ==
[~2020-02-21 07:38] MED LIST changes: -PANT40TA5 PO; +PANT40TA6 PO
== END 2020-02-21 23:59 | disposition home or self-care (01) ==
LOC: CFH 07:38
DX: Z13.89 Encounter for screening for other disorder (principal); Z12.31 Encounter for screening mammogram for malignant neoplasm of breast; Z13.820 Encounter for screening for osteoporosis; K74.60 Unspecified cirrhosis of liver; N95.9 Unspecified menopausal and perimenopausal disorder; Z90.49 Acquired absence of other specified parts of digestive tract
CPT/HCPCS: 76705

== ENCOUNTER 2020-02-28 08:52 | Outpatient (CLI) | payer MEDICARE, BC | END 2020-02-28 23:59 | disposition home or self-care (01) | LOC: CFH 08:52 | DX: Z13.820 Encounter for screening for osteoporosis (principal); N95.9 Unspecified menopausal and perimenopausal disorder; N64.9 Disorder of breast, unspecified; M85.80 Other specified disorders of bone density and structure, unspecified site | CPT/HCPCS: 76642; 77080; 77066 ==

== ENCOUNTER → 2020-03-27 | Outpatient (CLI) | payer MEDICARE, BC ==
[~2020-03-27] MED LIST changes: +PANT40TA5 PO; -PANT40TA6 PO
== END | disposition home or self-care (01) ==
LOC: RAD 13:45
PROVIDERS: ATTEND Physician Assistant
DX: R13.19 Other dysphagia (principal); K74.60 Unspecified cirrhosis of liver
CPT/HCPCS: 74220

== ENCOUNTER → 2021-03-05 | Outpatient (CLI) | payer MEDICARE, BC ==
[~2021-03-05] MED LIST changes: -ASPI-515 PO; +ASPI-963 PO; -PANT40TA5 PO; +PANT40TA6 PO
== END | disposition home or self-care (01) ==
LOC: CFH 06:55 → EDSTATUS 07:00
PROVIDERS: ATTEND Physician Assistant
DX: K74.60 Unspecified cirrhosis of liver (principal); Z90.49 Acquired absence of other specified parts of digestive tract
CPT/HCPCS: 76705